=== PATIENT | male | born 2000 | race Caucasian/White ===

== ENCOUNTER 2023-10-01 21:01 | Emergency (ER) | payer OTHER ==
[2023-10-01 21:17] VITALS: RESP 16
[2023-10-01] MEDS ORDERED: DOXYCYCLINE HYCLATE 100 MG CAPSULE PO ONE (22:34)
[2023-10-01] MEDS ORDERED: IBUPROFEN 600 MG TABLET (FP) PO ONE (22:37)
[2023-10-01 22:39] LABS: HEMATOCRIT 45.4 % (35.4-49); HEMOGLOBIN 15.2 G/dL (11.7-16.9); MCH 30.4 pg (25.7-33.7); MCHC 33.4 g/dl (32.0-35.9); MEAN CELL VOLUME 90.7 fl (80-96); MEAN PLT VOLUME 8.7 fl (7.5-11.1); PLATELET COUNT 128.2 10^3/uL (134-434); RDW 13.1 % (11.9-15.9); WHITE BLOOD COUNT 4.7 10^3/uL (4.0-10.8)
[2023-10-01 22:40] VITALS: BP 121/65; PULSE 92; TEMP 102.6
[2023-10-01] MEDS: DOXYCYCLINE HYCLATE 100 MG CAPSULE PO ONE (22:41)
[2023-10-01] MEDS: IBUPROFEN 600 MG TABLET (FP) PO ONE (22:42)
[2023-10-01 22:52] LABS: ALBUMIN 4.5 g/dl (3.4-5.0); ALK PHOS 49 U/L (45-117); ANION GAP 8 mmol/L (4-13); BILIRUBIN,TOTAL 0.6 mg/dl (0.2-1); CALCIUM 8.9 mg/dl (8.5-10.1); CHLORIDE 97 mmol/L (98-107); CO2 30 mmol/L (21-32); CREATININE 1.4 mg/dl (0.6-1.3); GLUCOSE,RANDOM 92 mg/dl (74-106); SGOT/AST 14 U/L (15-37); SGPT/ALT 7 U/L (7-52); SODIUM 135 mmol/L (136-145); TOT PROT 6.8 g/dl (6.4-8.2)
[2023-10-01 22:57] LABS: ADD RBC MORPHOLOGY YES
[2023-10-01 23:27] LABS: THROAT:GRP A STREP NOT DETECTED (NOTDETECTED)
[2023-10-01 23:33] LABS: PLATELET ESTIMATE DECREASED
== END 2023-10-01 22:48 | disposition home or self-care (01) ==
LOC: FER 21:01
DX: R50.9 Fever, unspecified (principal); J18.9 Pneumonia, unspecified organism; R05.9 Cough, unspecified; Z20.822 Contact with and (suspected) exposure to COVID-19
CPT/HCPCS: 0241U-QW; 36415; 71046-TC-FY; 80053; 85025; 87651; 99284-25